=== PATIENT | female | born 1975 | race Caucasian/White ===

== ENCOUNTER → 2016-11-07 | Outpatient (CLI) | payer OTHER ==
[~2016-11-07] MED LIST: IBUP200T2 PO; MACR100C PO; TRAM50 PO; Z.0.NO CURRENT MEDS
[2016-11-07 13:46] LABS: AUTOMATED NEUTROPHIL # 5.2 TH/MM3 (1.8-7.7); BASOPHIL # 0.1 TH/MM3 (0-0.2); BASOPHIL % 0.9 % (0.0-2.0); EOSINOPHIL # 0.1 TH/MM3 (0-0.4); HEMATOCRIT 43.5 % (35.0-46.0); HEMO FLAGS DIFF FINAL; LYMPH % 24.8 % (9.0-44.0); LYMPHOCYTE # 1.9 TH/MM3 (1.0-4.8); MEAN CELL VOLUME 88.9 FL (80.0-100.0); MEAN CORPUSCULAR HEMOGLOBIN 29.5 PG (27.0-34.0); MEAN CORPUSCULAR HGB CONC 33.2 % (32.0-36.0); MONO % 5.8 % (0.0-8.0); NEUT % 67.5 % (16.0-70.0); PLATELET COUNT 198 TH/MM3 (150-450); RED BLOOD COUNT 4.89 MIL/MM3 (4.00-5.30); RED CELL DISTRIBUTION WIDTH 12.1 % (11.6-17.2); WHITE BLOOD COUNT 7.8 TH/MM3 (4.0-11.0)
[2016-11-07 13:53] LABS: BACTERIA, URINE RARE /hpf; BLOOD, URINE TRACE (NEG); COMMENT (UR) CULT NOT INDICATED; CULTURE IF INDICATED CULT NOT INDICATED; GLUCOSE,URINE NEG (NEG); KETONE, URINE NEG (NEG); MUCUS URINE FEW /lpf (OCC); NITRITE,URINE NEG (NEG); PH, URINE 5.5 (5.0-8.5); SQUAMOUS EPITHELIAL CELL URINE <1 /hpf (0-5); URINE COLOR YELLOW (YELLW/STRAW)
[2016-11-07 14:15] LABS: BETA HCG QUANT LESS THAN 1 MIU/ML (0-5)
--- NOTE | 2016-11-08 13:33 | EKG ---
Date Performed: 11/07/2016 Time Performed: 13:03:20 PTAGE: 41 years EKG: SINUS BRADYCARDIA WITH SINUS ARRHYTHMIA BORDERLINE ECG NO PREVIOUS TRACING DOCTOR: Alejandro Valderrama Interpretating Date/Time 11/08/2016 13:30:57
== END ==
LOC: CPRE 12:28
PROVIDERS: ATTEND Obstetrics & Gynecology
DX: Z01.812 Encounter for preprocedural laboratory examination (principal); Z01.810 Encounter for preprocedural cardiovascular examination; D25.9 Leiomyoma of uterus, unspecified; N83.201 Unspecified ovarian cyst, right side; R94.31 Abnormal electrocardiogram [ECG] [EKG]
CPT/HCPCS: 36415; 81001; 84702; 85025; 93005

== ENCOUNTER 2016-11-10 05:47 | Observation (INO) | payer OTHER ==
--- NOTE | 2016-11-09 10:27 | MH ---
cc: AIDE [facility] Corrected Copy: 11/12/16 DATE OF ADMISSION: 11/10/2016 DATE OF : 1975 ADMITTING DIAGNOSIS: Dysmenorrhea, uterine fibroids with right ovarian cyst. HISTORY OF PRESENT ILLNESS: The patient is a 41 year-old white female, para 2-0-0-2, has had a long history of pelvic pain, dull, lower abdominal, left-sided for several years. She had severe onset on the morning of 08/22/2016. She went to a walk-in center where ultrasound was performed consistent with a collapsing cyst. A followup scan on 10/16/16, showed a 1.8 cm mass in the right ovary and probable multiple small fibroids. She is now admitted for hysterectomy. Her pain is primarily left-sided. PAST MEDICAL HISTORY: Endometrial ablation in 2005. MEDICATIONS: Motrin. ALLERGIES: NONE. TRANSFUSIONS: None. OBSTETRICAL HISTORY: Two vaginal deliveries. 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 Alcohol occasional. Tobacco and drugs: None. FAMILY HISTORY: Noncontributory. PHYSICAL EXAMINATION: Reveals a well-developed, well-nourished white female. Vital signs stable. HEENT: Exam is normal. Chest: Clear. Heart: Regular rate. Breasts: Symmetrical. Abdomen: Benign. Pelvic exam: Vagina is normal. Cervix normal. Uterus is slightly enlarged. Adnexa nonpalpable. ASSESSMENT: As above. She is now admitted for laparoscopy, probable LASH procedure, possible LSO, possible BSO. While in the office, the procedure, the risks, benefits, and complications were explained. The patient would like to proceed. MD DSUTIN Jimenes/ALFRED /9:54 AM /12:58 PM CARLI
[~2016-11-10] VITALS: Ht 170.2 cm; Wt 64.2 kg
[~2016-11-10 05:47] MED LIST changes: -MACR100C PO; -TRAM50 PO; -Z.0.NO CURRENT MEDS
[2016-11-10] MEDS ORDERED: LACTATED RINGER'S 1000 ML IV PRN (06:30)
[2016-11-10] MEDS ORDERED: SODIUM CHLORID 0.9% 500 ML IV PRN (06:30)
[2016-11-10] MEDS ORDERED: POVIDONE IODINE 5% (ANTISEPSIS KIT) 4 APPLICATIONS EACH NARE PRN (06:30)
[2016-11-10] MEDS ORDERED: CHLORHEXIDINE GLUCONATE 2 % 1 PACK (2 CLOTHS) TOPICAL PRN (06:30)
[2016-11-10] MEDS ORDERED: INSULIN HUMAN REGULAR 1,000 UNITS/10 ML VIAL SQ PRN (06:30)
[2016-11-10] MEDS ORDERED: ACETAMINOPHEN 1000 MG/100 ML VIAL IV SCH (06:30)
[2016-11-10] MEDS ORDERED: METOPROLOL TARTRATE 25 MG TAB PO PRN (06:30)
[2016-11-10] MEDS ORDERED: ceFAZolin 2 GM PREMIX 50 ML IV SCH (06:30)
[2016-11-10 06:32] VITALS: BP 119/67; PULSE 55; RESP 16; TEMP 97.7; O2SAT 99
[2016-11-10] MEDS ORDERED: FAMOTIDINE 20 MG/2 ML VIAL ONE (07:11)
[2016-11-10] MEDS ORDERED: APREPITANT 40 MG CAP ONE ×2 (07:11→07:13)
[2016-11-10] MEDS ORDERED: ONDANSETRON ODT 4 MG TAB PO PRN (09:00)
[2016-11-10] MEDS: KETOROLAC TROMETHAMINE 30 MG/ML (IVP) VIAL IVP SCH ×3 (09:00→21:10)
[2016-11-10] MEDS ORDERED: ZOLPIDEM TARTRATE 5 MG TAB PO PRN (09:00)
[2016-11-10] MEDS ORDERED: ONDANSETRON HCL 4 MG/2 ML VIAL IV PRN (09:00)
[2016-11-10] MEDS ORDERED: SODIUM CHLORIDE 0.9% FLUSH 5 ML FLUSH FLUSH PRN (09:00)
[2016-11-10] MEDS: SODIUM CHLORIDE 0.9% FLUSH 5 ML FLUSH FLUSH SCH ×2 (09:00→21:00)
[2016-11-10] MEDS ORDERED: HYDROmorphone HCL PF 1 MG/ML VIAL IV PRN (09:00)
[2016-11-10] MEDS ORDERED: METOCLOPRAMIDE HCL 10 MG/2 ML VIAL IV PUSH PRN (09:00)
[2016-11-10] MEDS ORDERED: ONDANSETRON INJ 8 MG in DEXTROSE 5% IN WATER INJ 50 ML IV PRN ×2 (09:15)
[2016-11-10] MEDS ORDERED: DO NOT ADM ANY ANTICOAGULANT DRUGS PRN (09:21)
[2016-11-10] MEDS ORDERED: MIDAZOLAM HCL 2 MG/2 ML VIAL ONE (09:34)
[2016-11-10] MEDS ORDERED: *ONDANSETRON 4 MG VIAL PERIprocedural Use ONLY ONE (09:38)
[2016-11-10] MEDS ORDERED: *morphine SULFATE 8 MG/ML PERIprocedure ONLY ONE (09:38)
[2016-11-10] MEDS: D5-1/2 NS + KCL 20 MEQ INJ 1,000 ML IV SCH ×3 (09:50→23:45)
[2016-11-10] MEDS ORDERED: *PROMETHAZINE 25 MG/ML VIAL PERIprocedural use ONLY ONE (09:59)
[2016-11-10] MEDS ORDERED: PROPOFOL 200 MG/20 ML AMP IV ONE (10:26)
[2016-11-10] MEDS ORDERED: ePHEDrine/NS 25 MG/5 ML SYR IV ONE (10:26)
[2016-11-10] MEDS ORDERED: LACTATED RINGER'S 1000 ML INJ 1,000 ML IV ONE (10:27)
[2016-11-10] MEDS ORDERED: KETOROLAC TROMETHAMINE 60 MG/2 ML (IM) VIAL IM ONE (10:27)
[2016-11-10] MEDS ORDERED: NEOSTIGMINE 3 MG/3 ML SYR IV ONE (10:27)
[2016-11-10] MEDS ORDERED: ONDANSETRON HCL 4 MG/2 ML VIAL IV PUSH ONE (10:27)
[2016-11-10 10:39] VITALS: BP 103/58; PULSE 66; RESP 20; TEMP 96.3; O2SAT 100
[2016-11-10] MEDS ORDERED: BUPIVACAINE LIPOSOME PF 1.3% 20 ML VIAL ONE (10:50)
[2016-11-10 12:24] VITALS: BP 96/52; PULSE 78; RESP 20; TEMP 96.1; O2SAT 100
[2016-11-10] MEDS: ACETAMINOPHEN 1000 MG/100 ML VIAL IV SCH ×2 (14:47→23:44)
[2016-11-10] MEDS: DOCUSATE SODIUM 100 MG CAP PO SCH ×2 (14:47→21:10)
[2016-11-10 14:51] LABS: HEMATOCRIT 38.4 % (35.0-46.0); REVIEW FLAG FINAL
[2016-11-10 16:00] VITALS: BP 94/51; PULSE 70; RESP 20; TEMP 96.7; O2SAT 100
[2016-11-10 20:00] VITALS: BP 99/58; PULSE 68; RESP 16; TEMP 97.8; O2SAT 100
[2016-11-11] VITALS: BP 97/52; PULSE 54; RESP 15; TEMP 96.4; O2SAT 98
[2016-11-11] MEDS: KETOROLAC TROMETHAMINE 30 MG/ML (IVP) VIAL IVP SCH ×2 (03:26→11:14)
[2016-11-11 04:00] VITALS: BP 92/59; PULSE 59; RESP 16; TEMP 97.1; O2SAT 98
[2016-11-11] MEDS: ACETAMINOPHEN 1000 MG/100 ML VIAL IV SCH (05:51)
[2016-11-11 06:21] VITALS: RESP 16
[2016-11-11 06:53] LABS: AUTOMATED NEUTROPHIL # 7.5 TH/MM3 (1.8-7.7); BASOPHIL % 0.5 % (0.0-2.0); EOSINOPHIL % 0.3 % (0.0-4.0); HEMATOCRIT 32.9 % (35.0-46.0); HEMO FLAGS DIFF FINAL; LYMPH % 16.5 % (9.0-44.0); LYMPHOCYTE # 1.6 TH/MM3 (1.0-4.8); MEAN CELL VOLUME 89.5 FL (80.0-100.0); MEAN CORPUSCULAR HEMOGLOBIN 30.3 PG (27.0-34.0); MEAN CORPUSCULAR HGB CONC 33.9 % (32.0-36.0); MONO % 5.9 % (0.0-8.0); NEUT % 76.8 % (16.0-70.0); PLATELET COUNT 143 TH/MM3 (150-450); RED BLOOD COUNT 3.67 MIL/MM3 (4.00-5.30); RED CELL DISTRIBUTION WIDTH 12.3 % (11.6-17.2); WHITE BLOOD COUNT 9.8 TH/MM3 (4.0-11.0)
[2016-11-11 07:16] LABS: BICARBONATE 26.6 MEQ/L (21.0-32.0); POTASSIUM 3.4 MEQ/L (3.5-5.1)
[2016-11-11 08:00] VITALS: BP 87/46; PULSE 52; TEMP 97; O2SAT 100
--- NOTE | 2016-11-11 08:21 | HHI.DCPOC ---
Discharge Care Plan Report Symptoms to Your Doctor -Temperature above 100.5 degrees -Redness, of incision or excessive or foul smelling drainage -Unusual pain or calf pain -Increased vaginal bleeding -Painful or difficulty urinating -Feelings of extreme sadness or anxiety after 2 weeks Goals to Promote Your Health * To prevent worsening of your condition and complications * To maintain your health at the optimal level Directions to Meet Your Goals Take your medications as prescribed Follow your dietary instruction Follow activity as directed Ensure plenty of rest for recovery Drink fluids for hydration Keep your appointments as scheduled Take your immunizations and boosters as scheduled If your symptoms worsen call your PCP, if no PCP go to Urgent Care Center or Emergency Room Smoking is Dangerous to Your Health. Avoid second hand smoke Call the 24-hour crisis hotline for domestic abuse at James Gibbons MD Nov 11, 2016 08:21
[2016-11-11] MEDS: D5-1/2 NS + KCL 20 MEQ INJ 1,000 ML IV SCH (09:00)
--- NOTE | 2016-11-11 09:32 | MP ---
cc: AIDE [facility] M.D. DATE OF SURGERY 11/10/2016 ADMISSION DIAGNOSIS Pelvic pain, possible ovarian cyst. POSTOPERATIVE DIAGNOSIS Pelvic pain with fibroids. PROCEDURE Laparoscopy, LASH and bilateral salpingectomy. ANESTHESIA General ET SURGEON Aide Cox MD LOAN COORDINATOR Ana Padron ESTIMATED BLOOD LOSS FOR THE PROCEDURE 100 cc FLUIDS One liter of crystalloid OBJECTIVE FINDINGS Following the induction of adequate general endotracheal anesthesia, the patient was prepped and draped supine on the operating table in the dorsal lithotomy position in the usual sterile fashion with the bladder being drained via Sharma catheterization. The abdomen was opened through a 3-cm curving infraumbilical incision using a knife to cut down skin to the fascia. The fascia opened transversely, stripped from the muscles. Rectus muscles splint in the midline and the peritoneum opened sharply. The GelPort was placed. Laparoscope was inserted and a five port placed in the left lower quadrant and an Airseal port right lower quadrant. Uterus was about 10-12 weeks size with fibroids. Tubes previous interruption. Ovaries are normal. Cul-de-sacs were clear. Liver edge was normal. Working first on the left, the Harmonic scalpel was used to take the left utero-ovarian pedicle, left round ligament, left broad ligament and left-side of the bladder flap and the uterine vessels, same on the right. The Harmonic scalpel was now used to amputate the fundus from the cervix and the fundus extracted with the pouch intact. One area of bleeding on the right side of cervix was controlled with a 2-0 Vicryl quill stitch. The tubal segments were now excised with the Harmonic scalpel from the GelPort site. Irrigation performed. No bleeding was evident. Ureters were inspected. Good peristalsis. No bleeding was noted with the Trendelenburg in neutral position and low-pressure test. The operative sites were coated with Evicel. The GelPort was now removed. The peritoneum sutured with a running 2-0 Vicryl, the fascia with a running locking stitch of 0 Vicryl corner to midline and tied, subcu with 3-0 Vicryl and skin with running subcuticular 3-0 Monocryl. Dermabond applied. All counts correct and the patient was awakened and taken to the recovery room in good condition. MD DUSTIN Jimenes/EDUARDO /12:51 PM /9:30 AM CARLI
[2016-11-11] MEDS: DOCUSATE SODIUM 100 MG CAP PO SCH (11:13)
[2016-11-11] MEDS: SODIUM CHLORIDE 0.9% FLUSH 5 ML FLUSH FLUSH SCH (11:14)
== END 2016-11-11 11:32 | disposition home or self-care (01) ==
LOC: HSDC 05:47 → HSDI 08:55 → HOCA 10:27
PROVIDERS: ADMIT Obstetrics & Gynecology; ATTEND Obstetrics & Gynecology
DX: D25.9 Leiomyoma of uterus, unspecified (principal); N94.6 Dysmenorrhea, unspecified
CPT/HCPCS: 36415; 58542; 64486; 80048; 81001; 84702; 85014; 85018; 85025; 86850; 86900; 86901; 88307; 93005; 94150; C9290; G0378; J0131; J0690; J1170; J1885; J2250; J2270; J2405; J2550; J2710; J2765; J3010; J3480; J7120; J8501